=== PATIENT | male | born 1975 | race African-American/Black ===

== ENCOUNTER 2022-03-15 11:35 | Inpatient (IN) | payer OTHER ==
[2022-03-15 13:42] VITALS: BMI 25.0
[2022-03-15] MEDS ORDERED: IBUPROFEN 600 MG TABLET (FP) PO PRN (14:52)
[2022-03-15] MEDS ORDERED: MAGNESIUM HYDROX 2400MG/30ML ORAL SUSPENSION 30 ML CUP PO PRN (14:52)
[2022-03-15] MEDS ORDERED: ONDANSETRON *ODT* 4 MG TABLET SL PRN (14:52)
[2022-03-15] MEDS ORDERED: DICYCLOMINE HCL 10 MG CAPSULE PO PRN (14:52)
[2022-03-15] MEDS ORDERED: LOPERAMIDE HCL 2 MG CAPSULE PO PRN (14:52)
[2022-03-15] MEDS ORDERED: NICOTINE 10 MG CARTRIDGE (INHALER) IH PRN (14:52)
[2022-03-15] MEDS ORDERED: METHOCARBAMOL 500 MG TABLET PO PRN (14:52)
[2022-03-15] MEDS ORDERED: MAG HYDROX/AL HYDROX/SIMETH 30 ML UNIT-DOSE CUP PO PRN (14:52)
[2022-03-15] MEDS ORDERED: BISMUTH SUBSALICYLATE 524 MG/30 ML PO PRN (14:52)
[2022-03-15] MEDS ORDERED: IBUPROFEN 400 MG TABLET (FP) PO PRN (14:52)
[2022-03-15] MEDS ORDERED: ACETAMINOPHEN 325 MG TABLET (FP) PO PRN ×2 (14:52)
[2022-03-15] MEDS ORDERED: MAGNESIUM CITRATE 300 ML BOTTLE PO PRN (14:52)
[2022-03-15] MEDS ORDERED: BENZOCAINE/MENTHOL (CHLORASEPTIC ) LOZENGE MM PRN (14:52)
[2022-03-15] MEDS ORDERED: ALBUTEROL SO4 HFA INHALER IH PRN (14:55)
[2022-03-15] MEDS ORDERED: metFORMIN HCL 500 MG TABLET (FP) PO SCH (15:00)
[2022-03-15] MEDS ORDERED: TUBERCULIN PPD 5 TU/0.1ML VIAL ID ONE (22:35)
[2022-03-15 22:54] VITALS: RESP 18
[2022-03-15] MEDS: hydrOXYzine PAMOATE 25 MG CAPSULE (FP) PO SCH ×2 (23:04→23:17)
[2022-03-15] MEDS: LIDOCAINE 5% TOPICAL PATCH TP SCH (23:05)
[2022-03-15] MEDS: LIDOCAINE PATCH REMOVAL MC SCH (23:06)
[2022-03-15] MEDS: THIAMINE HCL 100 MG TABLET (FP) PO SCH (23:17)
[2022-03-15] MEDS: MELATONIN 5 MG TABLETS PO SCH (23:17)
[2022-03-15] MEDS: metFORMIN HCL 500 MG TABLET (FP) PO SCH (23:18)
[2022-03-16] MEDS: hydrOXYzine PAMOATE 25 MG CAPSULE (FP) PO SCH ×5 (06:14→22:33)
[2022-03-16] MEDS: metFORMIN HCL 500 MG TABLET (FP) PO SCH (07:01)
[2022-03-16 09:08] LABS: HEMATOCRIT 35.5 % (35.4-49); HEMOGLOBIN 11.9 GM/dL (11.7-16.9); MCHC 33.5 g/dl (32.0-35.9); MEAN CELL VOLUME 83.6 fl (80-96); MEAN PLT VOLUME 7.4 fl (7.5-11.1); PLATELET COUNT 235 10^3/uL (134-434); RBC 4.24 M/mm3 (4.00-5.60); RDW 13.4 % (11.9-15.9); WHITE BLOOD COUNT 3.6 K/mm3 (4.0-10.0)
[2022-03-16 09:13] LABS: URINE APPEARANCE CLEAR; URINE BILIRUBIN NEGATIVE (NEGATIVE); URINE COLOR YELLOW; URINE GLUCOSE (UA) NEGATIVE (NEGATIVE); URINE KETONE TRACE (NEGATIVE); URINE LEUK ESTERASE NEGATIVE (NEGATIVE); URINE NITRITE NEGATIVE (NEGATIVE); URINE PROTEIN NEGATIVE (NEGATIVE)
[2022-03-16 09:30] LABS: CALCIUM 8.7 mg/dL (8.5-10.1)
[2022-03-16 09:31] LABS: ALBUMIN 3.3 g/dl (3.4-5.0); BLOOD UREA NITROGEN 11.5 mg/dL (7-18)
[2022-03-16 09:34] LABS: CREATININE 0.8 mg/dL (0.55-1.3)
[2022-03-16 09:36] LABS: BILIRUBIN,TOTAL 0.3 mg/dL (0.2-1); TOT PROT 6.8 g/dl (6.4-8.2)
[2022-03-16] MEDS: LIDOCAINE 5% TOPICAL PATCH TP SCH (10:52)
[2022-03-16] MEDS: PRENATAL VITAMINS W/ FOLIC ACID TABLET (FP) PO SCH (10:52)
[2022-03-16] MEDS: THIAMINE HCL 100 MG TABLET (FP) PO SCH (22:33)
[2022-03-16] MEDS: MELATONIN 5 MG TABLETS PO SCH (22:33)
[2022-03-16] MEDS: LIDOCAINE PATCH REMOVAL MC SCH (22:33)
[2022-03-17] MEDS: hydrOXYzine PAMOATE 25 MG CAPSULE (FP) PO SCH ×3 (06:39→13:06)
[2022-03-17] MEDS: PRENATAL VITAMINS W/ FOLIC ACID TABLET (FP) PO SCH (10:53)
[2022-03-17] MEDS: LIDOCAINE 5% TOPICAL PATCH TP SCH (10:53)
[2022-03-17] MEDS ORDERED: BACLOFEN 10 MG TABLET (FP) PO SCH (12:00)
[2022-03-17] MEDS: metFORMIN HCL 500 MG TABLET (FP) PO SCH (13:06)
[2022-03-17] MEDS ORDERED: hydrOXYzine PAMOATE 25 MG CAPSULE (FP) PO PRN (14:20)
[2022-03-17 17:52] VITALS: BP 137/81; PULSE 90; TEMP 97.7
== END 2022-03-17 18:25 | disposition left against medical advice (07) | DRG 770 ==
LOC: YASAS 11:35 → Y3W 18:36
PROVIDERS: ADMIT Allergy & Immunology; ATTEND Psychiatry & Neurology Pain Medicine
PROC: HZ42ZZZ Group Counseling for Substance Abuse Treatment, Cognitive-Behavioral (ICD-10-PCS; principal; 2022-03-15)
DX: F14.20 Cocaine dependence, uncomplicated (principal); F17.210 Nicotine dependence, cigarettes, uncomplicated; I10 Essential (primary) hypertension; J45.909 Unspecified asthma, uncomplicated; E11.9 Type 2 diabetes mellitus without complications; B18.2 Chronic viral hepatitis C; M16.10 Unilateral primary osteoarthritis, unspecified hip; Z91.011 Allergy to milk products; Z86.711 Personal history of pulmonary embolism; Z86.69 Personal history of other diseases of the nervous system and sense organs; Z87.820 Personal history of traumatic brain injury; Z79.84 Long term (current) use of oral hypoglycemic drugs; Z59.00 Homelessness unspecified
CPT/HCPCS: 36415; 80053; 81003; 82962; 85027; 85660; 86780; C9803-CS; J0475; U0003; U0005